=== PATIENT | female | born 1970 | race Caucasian/White ===

== ENCOUNTER → 2018-06-25 | Outpatient (CLI) | payer BC ==
[~2018-06-25] MED LIST: BYDUREON B2 MG/0.85 SUBQ; COZAAR 25 MG TA25 M1 PO; CRESTOR10 MG PO; FARXIGA10 MG PO; FLEXERIL PO; NEURONTIN 300300 M1 PO; NORCO 10-325 T1 EAC1 PO; ROBAXIN 750 MG750 M1 PO
--- NOTE | 2018-07-13 10:00 | PAINCON ---
[facility] [address] [place] [address] PAIN MANAGEMENT CONSULTATION Name: MUSHTAQ TONG Room: [facility]#: [id number] Admission: 06/25/18 Attend Phys: Juan Clifford MD Discharge: Date of : 66 Report #: [id number] THIS REPORT FOR: //name// CC: MATTY physician/PCP RUBY Clifford DATE OF SERVICE: 06/25/2018 CHIEF COMPLAINT: Hip pain. HISTORY OF PRESENT ILLNESS: The patient is a 48-year-old female who has been noticing worsening of pain and discomfort over the last months. Over the last 6 months she has notable definite worsening of pain and discomfort involving her left hip. States that it feels like it is on fire. Notes that the pain radiates from the outer portion of her hip into the area of the groin. Pain is worse with standing, walking. Denies any trauma. Has noted some improvement in pain with use of a heating pad. She notes that rest can improve with discomfort. Describes as continuous, burning and rates it as an 8/10. She has not had any trauma to the affected area. She does drive a car. It is a 5 speed. At this juncture, she notes that the pain is specifically increased secondary to drive in the 5 speed. She must shift on numerous occasions. This makes this quite problematic. The patient has been in the process of losing weight. She states that she has lost 40-50 pounds at this juncture, has been walking and working out in a pool. She has a history of chronic fatigue syndrome. She feels that this is happy, had a very opportune time. She and her children have planned on going to [place] in the spring. She would like to be evaluated. ALLERGIES: KEFLEX, DEMEROL, HUMIRA. CURRENT MEDICATIONS: Flexeril 10 mg t.i.d., Farxiga 10 mg, exenatide microspheres 2 mg subcutaneous auto inject, [place] 10/325 every 6 hours p.r.n., Cozaar 25 mg 50 mg total, Robaxin 750 mg every 4 hours p.r.n., Crestor 10 mg. 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 PAST SURGICAL HISTORY: Cholecystectomy, tonsillectomy. SOCIAL HISTORY: She is a homemaker. REVIEW OF SYSTEMS: Recent weight change, decreased appetite, fatigue, weakness, wears glasses, blurred vision, awakens to urinate, joint pain, joint stiffness, swelling, weakness of the muscle, joints pain in the muscles and cramping, [place] [address] PAIN MANAGEMENT CONSULTATION Name: MUSHTAQ TONG Room: [facility]#: [id number] Admission: 06/25/18 Attend Phys: Juan Clifford MD Discharge: Date of : 66 Report #: [id number] pain, difficulty walking, nervousness, depression, and insomnia. PAIN CLINIC ASSESSMENT/PQRS: 1. Left hip pain. 2. Rheumatoid arthritis. The patient states she has been treated for rheumatoid arthritis, but is ALLERGIC TO THE BIOLOGICAL AGENTS. Height 5 feet 4 inches, weight 302 pounds, BMI is 52. Blood pressure 158/107, heart rate 110, respiratory rate 16, room air saturation 96%, temperature 98.7. 3. Pain intensity 3-4. 4. Fall history: The patient has not fallen in the last 3 months. 5. Blood thinner. The patient is not on a blood thinning medication. 6. Hypertension. The patient is being treated for hypertension. 7. Opioid therapy greater than 6 weeks. The patient is not receiving opioid medications greater than 6 weeks. 8. Risk assessment tool. 9. Functional assessment tool. 10. Recreational drug use: The patient denies. 11. Tobacco: The patient denies. 12. Alcohol: The patient denies use of alcoholic beverages. PHYSICAL EXAMINATION: GENERAL: The patient is a well-developed, well-nourished elderly obese white female, appears her stated age. She is alert and oriented x3. Affect is appropriate. Speech is fluent. HEAD, EYES, EARS, NOSE, AND THROAT: Normocephalic, atraumatic. Extraocular muscles intact. Sclerae nonicteric. Mucous membranes are moist. NECK: Without adenopathy or JVD. Upper extremity muscle strength is judged to be 5/5 for the major muscle groups in the upper extremity. HEART: Regular rate, distant tones. LUNGS: Clear to auscultation without rales or rhonchi. ABDOMEN: The patient has abdomen protuberant. Bowel sounds positive. MUSCULOSKELETAL: Without significant scoliosis, kyphosis or lordosis. The patient has pain and discomfort involving the left hip. Internal and external rotation of the hip are problematic and worsens pain and discomfort. The patient notes pain and discomfort with standing, going from a sitting to a standing position. The patient for a few steps. Notes pain radiating into the angle of her hip joint. 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 RECOMMENDATIONS: We discussed treatment options with the patient. At this juncture, we will consider an x-ray of her hip. The patient will return to the pain clinic. We will consider the possibility of an [place] [address] PAIN MANAGEMENT CONSULTATION Name: MUSHTAQ TONG Room: [facility]#: [id number] Admission: 06/25/18 Attend Phys: Juan Clifford MD Discharge: Date of : 66 Report #: [id number] upon her return. Risks and benefits of the procedure were discussed. The patient is a diabetic. I explained to her possible elevation of blood sugars associated with the injection. At this juncture, she ____. We will then proceed with a left hip injection under fluoroscopy. We would like to thank you for letting us to participate in her care. We hope she continues to improve. <ELECTRONICALLY SIGNED> By: Juan Clifford MD 07/13/18 1000 [id number] [id number]. Rivas Clifford MD /DARYA
== END ==
LOC: M.PC 04:55
DX: M25.552 Pain in left hip (principal); E11.9 Type 2 diabetes mellitus without complications; E78.5 Hyperlipidemia, unspecified; I10 Essential (primary) hypertension; M06.9 Rheumatoid arthritis, unspecified; E66.9 Obesity, unspecified; R53.83 Other fatigue; M54.5 Low back pain; G47.00 Insomnia, unspecified; K76.0 Fatty (change of) liver, not elsewhere classified; G89.29 Other chronic pain; R10.30 Lower abdominal pain, unspecified; E16.4 Increased secretion of gastrin

== ENCOUNTER → 2018-06-30 | Outpatient (CLI) | payer BC, MEDICARE ==
--- NOTE | 2018-08-12 15:49 | PAINCON ---
[address] [address] PAIN MANAGEMENT CONSULTATION Name: MUSHTAQ TONG Room: [facility]#: [id number] Admission: 06/30/18 Attend Phys: Juan Clifford MD Discharge: Date of : 66 Report #: [id number] THIS REPORT FOR: //name// CC: RUBY Clifford Physician staff DATE OF SERVICE: 06/30/2018 FOLLOWUP COMPLAINT: Here for a left hip injection. HISTORY OF PRESENT ILLNESS: The patient is a 48-year-old female who has been referred to the pain clinic because of pain and discomfort which she has been experiencing over the last few months. Over the last 6 months, she has noticed an increased pain and discomfort involving her left hip. She feels that it is "on fire." Notes that the pain radiates down from her hip into the groin area. Pain is worse with standing and walking. Denies any history of trauma. She has noted some improvement with placement of a heating pad on it. Notes that the pain improves with rest. Rates it as an 8/10 at this juncture. She has difficulty getting in and out of the car because of the pain. She states she has lost about 40-50 pounds. This is not in relationship to the hip, but has been working on it. She notes that this was enabled by walking as well as working out in the pool. These two activities have been significantly curtailed because of her pain. ALLERGIES: KEFLEX, DEMEROL, AND HUMIRA. MEDICATIONS: Flexeril 10 mg t.i.d., Farxiga 10 mg, Exenatide microspheres 2 mg subcutaneous auto inject, [place] 10/325 one p.o. q. 6 hours p.r.n. pain, Cozaar 25 mg, a total of 50 mg, Robaxin 750 mg q. 4 hours and Crestor 10 mg. PAIN CLINIC ASSESSMENT/PQRS: 1. The patient has some arthritic changes associated with her left hip. The patient has been treated with biologics for rheumatoid arthritis. She is unable to take treatment from these medications secondary to allergies. 2. Pain intensity 12/06. 3. Height 5 feet 4 inches, weight 302 pounds, BMI is 52. 4. Vital Signs: Blood pressure 138/86, heart rate 80, respiratory rate 16, room air saturation 94%. 5. Fall history: The patient has not fallen in the last 3 months. 6. Blood thinner. The patient is not on a blood thinning medication. 7. Hypertension. The patient is being treated for hypertension. 8. Opioid therapy greater than 6 weeks. The patient has not been receiving opioid medications for greater than 6 weeks. 9. [place] [address] PAIN MANAGEMENT CONSULTATION Name: MUSHTAQ TONG Room: [facility]#: [id number] Admission: 06/30/18 Attend Phys: Juan Clifford MD Discharge: Date of : 66 Report #: [id number] 10. Functional assessment tool. 11. Recreational drug use: The patient denies. 12. Tobacco: The patient denies. 13. Alcohol: The patient denies use of alcoholic beverages. PHYSICAL EXAMINATION: GENERAL: The patient is a well-developed, well-nourished, obese female. She appears her stated age. She is alert and oriented x 3. Her affect is appropriate. Speech is fluent. HEENT: Normocephalic, atraumatic. Extraocular eye muscles intact. Sclerae nonicteric. Mucous membranes are moist. NECK: Without adenopathy or JVD. Upper extremity muscle strength is judged to be 5/5 for the major muscle groups. HEART: Regular rate, distant tone. LUNGS: Clear to auscultation without rales or rhonchi. ABDOMEN: Nontender, protuberant. Bowel sounds positive. MUSCULOSKELETAL: Without significant scoliosis, kyphosis or lordosis. The patient does have some pain and discomfort in the left hip. Internal and external rotation cause a worsening of her pain and discomfort. The patient goes from a sitting to a standing position and walks with an antalgic gait for a few steps. Notes pain radiating into the groin area. IMPRESSION: 1. Left hip pain with radiation into the groin. 2. Rheumatoid arthritis. 3. Chronic fatigue syndrome. 4. Chronic low back pain. 5. Diabetes. 6. Insomnia. 7. Maxillary sinusitis. 8. Hyperlipidemia. 9. Hypertension. 10. Fatty liver. 11. Obesity. 12. 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 RECOMMENDATIONS: We discussed the treatment option with the patient. She recalls the possible complication of the procedure, which could include but are not limited to infection, increased pain, no improvement in pain, infection, bleeding. The patient elects to proceed. PROCEDURE NOTE: The patient was assisted in getting on the examination table. She was placed in the supine position. Her left hip area was sterilely prepped with a chlorhexidine solution and allowed to dry. It was again washed with a chlorhexidine solution and allowed to dry and for the third time again it was washed with a chlorhexidine solution and allowed to dry. A [place] 6[place] [address] PAIN MANAGEMENT CONSULTATION Name: MUSHTAQ TONG Room: [facility]#: [id number] Admission: 06/30/18 Attend Phys: Juan Clifford MD Discharge: Date of : 66 Report #: [id number] was then guided into the area of the left hip area. The skin had been anesthetized with 1% lidocaine. Fluoroscopy using anterior, posterior and lateral viewing were instituted after appropriate guidance in the area of the left hip. An injection of contrast media 180 was injected. Appropriate flow was noted. A total of 40 mg triamcinolone with 5 mL of 0.5% bupivacaine was injected. The patient tolerated the procedure well. There were no complications. She remained in the pain clinic for an appropriate amount of time. The patient's pain decreased to 2 at the time of discharge. She will follow up in the future as needed. We would like to thank you for letting us participate in her care. We hope she continues to improve. <ELECTRONICALLY SIGNED> By: Juan Clifford MD 08/12/18 1549 1152 1612N. Rivas Clifford MD /nt
== END | disposition home or self-care (01) ==
LOC: M.PC 04:52
DX: M25.552 Pain in left hip (principal); G89.29 Other chronic pain; I10 Essential (primary) hypertension; E78.5 Hyperlipidemia, unspecified; E11.9 Type 2 diabetes mellitus without complications; M06.9 Rheumatoid arthritis, unspecified; R53.82 Chronic fatigue, unspecified; M54.5 Low back pain; Z88.8 Allergy status to other drugs, medicaments and biological substances; Z79.899 Other long term (current) drug therapy; Z98.890 Other specified postprocedural states

== ENCOUNTER → 2018-08-04 | Outpatient (CLI) | payer BC, MEDICARE ==
--- NOTE | 2018-08-12 15:35 | PAINCON ---
[address] [address] PAIN MANAGEMENT CONSULTATION Name: MUSHTAQ TONG [id number] Admission: 08/04/18 Attend Phys: Juan Clifford MD Discharge: Date of : 66 Report #: [id number] THIS REPORT FOR: //name// CC: Dr. Yasmeen Clifford DATE OF SERVICE: 08/04/2018 PRIMARY CARE PHYSICIAN: Dr. Yasmeen Clark. FOLLOWUP COMPLAINT: The injection helped for a number of weeks. I would like to have another one. FOLLOWUP HISTORY: The patient is a 48-year-old female who has been seen in the pain clinic because of left hip pain. The patient has been told that she has some pathology involving her left hip. She has undergone a left hip injection. She noted significant improvement in her pain. She has noticed a return of the pain. Notes that there is pain and a "pulling sensation" in her back. Feels that her back is "out of place." Denies any new trauma. She had no complication from the last injection. No signs of infections or elevated temperatures. She has tried Vicodin, but does not feel that this has been very helpful. Continues to try to control her blood sugars. States that her A1c was about 6.5. She has gone to the Emergency Room because of pain in her leg. The patient felt pretty good after the first injection. States that she played a short game of basketball with her granddaughter. Notes some worsening of pain after that. ALLERGIES: KEFLEX, DEMEROL, HUMIRA. MEDICATIONS: Flexeril 10 mg t.i.d., Farxiga 10 mg, Exenatide microspheres 2 mg subcutaneous auto injection, [place] 10/325 one p.o. q.6 hours p.r.n. pain, Cozaar 25 mg, total of 50 mg daily, Robaxin 750 mg q.4 hours, Crestor 10 mg. PAIN CLINIC ASSESSMENT AND PQRS: 1. The patient has some arthritic changes associated with her left hip. She has been treated with biologics because of rheumatoid arthritis. She is unable to use these medications secondary to the allergies to them. 2. Pain intensity 06/08 today. 3. Height 5 feet 4 inches, weight 307 pounds, BMI is 53. 4. Vital Signs: Blood pressure 154/104, second blood pressure 167/95, heart rate 111, respiratory rate 18, room air saturation 95%, temperature 97.9. 5. Fall history: The patient has not fallen in the last 3 months. 6. Blood thinner. The patient is not on a blood thinning medication. 7. Hypertension. The patient is being treated for hypertension. 8. Opioid therapy greater than 6 weeks. The patient [place] [address] PAIN MANAGEMENT CONSULTATION Name: MUSHTAQ TONG Room: [facility]#: [id number] Admission: 08/04/18 Attend Phys: Juan Clifford MD Discharge: Date of : 66 Report #: [id number] medications on a regular basis from the pain clinic. She has received them from her physician. 9. Risk assessment tool. 10. Functional assessment tool. 11. Recreational drug use: The patient denies use of recreational drugs. 12. Tobacco: The patient denies use of tobacco. 13. Alcohol: The patient denies use of alcoholic beverages. PHYSICAL EXAMINATION: GENERAL: The patient is a well-developed, well-nourished, obese, white female. She is alert and oriented x 3. Her affect is appropriate. Speech is fluent. HEENT: Normocephalic, atraumatic. Extraocular eye muscles intact. Sclerae nonicteric. Mucous membranes are moist. NECK: Without adenopathy or JVD. Upper extremity muscle strength is judged to be 5/5 in the major muscle groups. HEART: Regular rate. S1, distant tones. LUNGS: Clear to auscultation without rales or rhonchi. ABDOMEN: Protuberant, nontender. Bowel sounds positive. MUSCULOSKELETAL: Without significant scoliosis, kyphosis or lordosis. The patient does have pain and discomfort involving the left hip. Internal and external rotation causes increased pain and discomfort. The patient does have some pain when going from a sitting to a standing position. Walks with an antalgic gait. Rates her pain as a 9/10 with movement. Has pain that radiates into the left groin area. IMPRESSION: 1. Left hip pain with radiation into the groin. 2. Rheumatoid arthritis. 3. Chronic fatigue syndrome. 4. Chronic low back pain. 5. Diabetes. 6. Insomnia. 7. Maxillary sinusitis. 8. Hyperlipidemia. 9. Hypertension. 10. Fatty liver. 11. Obesity. 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 RECOMMENDATIONS: We discussed treatment options with the patient. At this juncture, she feels that her pain continues to be problematic. She did receive some good relief after the last injection. Notes some increased pain and discomfort after playing basketball with her granddaughter. She has returned today with a desire to undergo another injection. The patient also drives about 4 hours to her physician. She was wondering if we could provide her opioid medications at this time, which would significantly decrease the amount of [facility] [address] [place] [address] PAIN MANAGEMENT CONSULTATION Name: MUSHTAQ TONG Room: [facility]#: [id number] Admission: 08/04/18 Attend Phys: Juan Clifford MD Discharge: Date of : 66 Report #: [id number] travel time that she has to undergo. The patient elects to proceed. PROCEDURE NOTE: The patient was assisted in getting on the examination table. She was placed in the supine position. Her hip area was sterilely prepped with a chlorhexidine solution and allowed to dry. It was again washed with chlorhexidine solution and allowed to dry. A second washing and this was allowed to dry. A 25-gauge needle was then used to anesthetize the skin with 1% lidocaine. A 6-inch size 10 spinal needle was used to gain access to the left hip area. Aspiration was negative. A total of 3 mL of 180 contrast media was injected. Appropriate flow was noted. A total of 40 mg triamcinolone was injected. A 5 mL of 0.5% bupivacaine was then injected. The patient tolerated the procedure well. There were no complications. She remained in the pain clinic for an appropriate amount of time. She noted that her pain had decreased to 0 at the time of discharge. She will follow up in the future as needed. We would like to thank you for letting us participate in her care. We hope she continues to improve. <ELECTRONICALLY SIGNED> By: Juan Clifford MD 08/12/18 1535 [id number]. Rivas Clifford MD /[facility]
== END | disposition home or self-care (01) ==
LOC: M.PC 08:16
DX: M16.12 Unilateral primary osteoarthritis, left hip (principal); M25.552 Pain in left hip; G89.29 Other chronic pain; M54.5 Low back pain; I10 Essential (primary) hypertension; E11.9 Type 2 diabetes mellitus without complications; J32.0 Chronic maxillary sinusitis; M06.9 Rheumatoid arthritis, unspecified; R53.82 Chronic fatigue, unspecified; E78.5 Hyperlipidemia, unspecified; E66.09 Other obesity due to excess calories; Z79.899 Other long term (current) drug therapy; Z88.8 Allergy status to other drugs, medicaments and biological substances; Z98.890 Other specified postprocedural states

== ENCOUNTER → 2018-09-08 | Outpatient (CLI) | payer BC, MEDICARE ==
--- NOTE | ~2018-09-08 | PAINCON ---
[address] [address] PAIN MANAGEMENT CONSULTATION Name: MUSHTAQ TONG Room: [facility].#: [id number] Admission: 09/08/18 Attend Phys: Juan Clifford MD Discharge: Date of : 66 Report #: [id number] THIS REPORT FOR: //name// CC: RUBY Clifford DATE OF SERVICE: 09/08/2018 FOLLOWUP COMPLAINT: Pain has improved significantly after the hip injections. I would like to try another. FOLLOWUP HISTORY: The patient is a 48-year-old female who has been seen in the Pain Clinic because of left hip pain. She has been told that she has some pathology involving her left hip. She has undergone a left hip injection previously. She noted greater than 90% improvement in the pain for quite a number of months to quite a number of weeks after the last injection. She has just noted a return of pain and discomfort. I would like to return to another injection at this juncture. Denies any new trauma. Has had no worsening or changes in her pain. She has not had any symptoms that would make her think that she has had an infection in the area. She has not noted any elevated temperatures. Finds that Vicodin continues to be helpful. She continues to monitor her blood sugars. She has been seen in the Emergency Room because the pain level has risen to such a great level. Overall, things have improved. She has returned today with the desire to undergo another injection to help with the chronic pain, which has been so problematic. Notes that the pain radiates down into her groin to the back of her leg to the knee. Frequently, she has been experiencing stiffness. The patient is scheduled to meet with her doctor Dr. Javed in the future to discuss options. ALLERGIES: KEFLEX, DEMEROL, HUMIRA. MEDICATIONS: Flexeril 10 mg t.i.d., Farxiga 10 mg, 2 mg subcutaneous injection, [place] 10/325 one p.o. q.6 hours p.r.n. pain, Cozaar 25 mg total 50 mg daily, Robaxin 750 mg q.4 hours, Crestor 10 mg. PAIN CLINIC ASSESSMENT/PQRS: 1. The patient has some arthritic changes associated with the left hip. She has been treated with biologics because of rheumatoid arthritis. She has had some difficulty with these medications secondary to allergies to them. 2. Pain intensity, 02/05. 3. Fall risk. The patient has not fallen in the last 3 months. 4. Blood thinner. The patient is not on a blood thinning medication. 5. Hypertension. The patient is being treated for hypertension. 6. Opioid therapy greater than 6 weeks. 7. The patient is receiving opioid medications for help with her pain control. We have written her last couple of medications. [place] [address] PAIN MANAGEMENT CONSULTATION Name: MUSHTAQ TONG Room: [facility]#: [id number] Admission: 09/08/18 Attend Phys: Juan Clifford MD Discharge: Date of : 66 Report #: [id number] of hours, try to her physician. 8. Risk assessment tool. 9. Functional assessment tool. 10. Recreational drug use: The patient denies use of recreational drugs. 11. Tobacco: The patient denies use of tobacco. 12. Alcohol: The patient denies use of frequent use of alcoholic beverages. PHYSICAL EXAMINATION: GENERAL: The patient is a well-developed, well-nourished white female who is obese. Her affect is appropriate. Speech is fluent. HEENT: Normocephalic, atraumatic. Extraocular eye muscles intact. Sclerae nonicteric. Mucous membranes are moist. NECK: Without adenopathy or JVD. Muscle strength in the upper extremity judged to be 5/5 for the major muscle groups. HEART: Regular rate. S1, S2. Distant tones. LUNGS: Clear to auscultation without rales or rhonchi. ABDOMEN: Protuberant, nontender. Bowel sounds present. MUSCULOSKELETAL: Without significant scoliosis, kyphosis or lordosis. The patient does have pain and discomfort radiating down to her left hip. Internal and external rotation cause increased pain and discomfort in the groin area. The patient notes going from a sitting to a standing position can be problematic. The patient walks with a slight antalgic gait. IMPRESSION: 1. Left hip pain with radiation into the groin area. 2. Rheumatoid arthritis. 3. Chronic fatigue syndrome. 4. Chronic low back pain. 5. Diabetes. 6. Insomnia. 7. Maxillary sinusitis. 8. Hyperlipidemia. 9. Hypertension. 10. Fatty liver. 11. Obesity. 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 RECOMMENDATIONS: We discussed treatment options with the patient. Risks and benefits of a hip injection were again discussed. Possible complications of the procedure were reviewed. They include nerve damage, bleeding, worsening of pain, no improvement in pain, infection, and the patient elects to proceed. PROCEDURE NOTE: The patient was taken to the procedure area. She was placed in the supine position. A chlorhexidine solution was used to sterilize the left groin area. This was allowed to dry. A second cleaning of this area with another chlorhexidine solution and allowed to dry was performed. Fluoroscopy [address] [address] PAIN MANAGEMENT CONSULTATION Name: MUSHTAQ TONG Room: [facility]#: [id number] Admission: 09/08/18 Attend Phys: Wilbert. Rivas Clifford MD Discharge: Date of : 66 Report #: [id number] using anterior, posterior as well as lateral viewing were implemented. A 25-gauge needle was then advanced into the area. Skin wheal was placed. A 22-gauge Chiba needle was then advanced into the area of the left hip joint. Aspiration was negative. Contrast dye was infiltrated. Appropriate spread of the contrast dye was noted. A total of 40 mg triamcinolone was injected. A total of 5 mL of 0.5% bupivacaine was injected. The patient tolerated the procedure well. There was no weakness in her legs. Pain decreased to ____ from 5-0 at the time of discharge. She will follow up in the future. A total of 21 seconds fluoroscopy time was used. We would like to thank you for letting us participate in her care. We hope she continues to improve. By: [id number]. Rivas Clifford MD /nt
== END | disposition home or self-care (01) ==
LOC: M.PC 04:40
DX: M25.552 Pain in left hip (principal); G89.29 Other chronic pain; I10 Essential (primary) hypertension; E11.9 Type 2 diabetes mellitus without complications; M54.5 Low back pain; M06.9 Rheumatoid arthritis, unspecified; R53.82 Chronic fatigue, unspecified; G47.00 Insomnia, unspecified; E78.5 Hyperlipidemia, unspecified; E66.09 Other obesity due to excess calories; Z98.890 Other specified postprocedural states; Z79.899 Other long term (current) drug therapy; Z88.8 Allergy status to other drugs, medicaments and biological substances

== ENCOUNTER → 2018-10-13 | Outpatient (CLI) | payer BC, MEDICARE ==
[~2018-10-13] MED LIST changes: +LANTUS100 UNIT/M SUBQ
== END | disposition home or self-care (01) ==
LOC: M.PC 09:20
DX: M25.552 Pain in left hip (principal); G89.29 Other chronic pain; I10 Essential (primary) hypertension; E11.9 Type 2 diabetes mellitus without complications; E78.5 Hyperlipidemia, unspecified; M06.9 Rheumatoid arthritis, unspecified; M54.5 Low back pain; Z98.890 Other specified postprocedural states; Z79.899 Other long term (current) drug therapy; Z88.8 Allergy status to other drugs, medicaments and biological substances

== ENCOUNTER → 2018-12-03 | Outpatient (CLI) | payer BC, MEDICARE ==
--- NOTE | ~2018-12-03 | PAINCON ---
[address] [address] PAIN MANAGEMENT CONSULTATION Name: MUSHTAQ TONG [id number] Admission: 12/03/18 Attend Phys: Juan Clifford MD Discharge: Date of : 66 Report #: [id number] THIS REPORT FOR: //name// CC: RUBY Clifford DATE OF SERVICE: 12/03/2018 CHIEF COMPLAINT: History of left hip pain has improved. FOLLOWUP HISTORY: The patient is a 48-year-old female who has been seen in the Pain Clinic because of chronic left hip pain. The patient states that she has improved. She is not having pain today. She has had pain over the last 10 months. She did see her orthopedic doctor. She states that she was told that she has bursitis. She was given an injection on 10/24/2018. Has found that the injection has been helpful. The patient does not need surgery. She can probably get by with injections on a p.r.n. basis. She notes that her blood sugars are going reasonably well. Finds that the hydrocodone, gabapentin and Flexeril are helpful. She would like to receive her medications through the Pain Clinic. She states that her physician who has been providing the medication has moved. She has about two mile, a 2-hour drive from her home and a 2-hour drive back. She states that she is about one-half hour away from the Pain Clinic and would like to continue to get her medications here because of convenience. Notes the pain is worse with activities, walking, standing and bending. Feels that her medications, heat and rest have been helpful. ALLERGIES: KEFLEX, DEMEROL, HUMIRA. CURRENT MEDICATIONS: Flexeril 10 mg t.i.d., Farxiga 10 mg, 2 mg subcutaneous injections, [place] 10/325 one p.o. 4-6 hours p.r.n., Cozaar 25 mg, a total of 50 mg daily, Robaxin 750 mg q. 4 hours and Crestor 10 mg. PAIN CLINIC ASSESSMENT/PQRS: 1. The patient has some arthritic changes associated with left hip. She does have rheumatoid arthritis. She has been treated with biological agents. She has had a difficult time tolerating these medications. 2. Pain intensity is 0/10. 3. Fall history: The patient has not fallen in the last 3 months. 4. Blood thinner. The patient is not on a blood thinning medication. 5. Hypertension. The patient is being treated for hypertension. 6. Opioids greater than 6 weeks. The patient would like to receive her medications from one source, the Pain Clinic. 7. Risk assessment tool, low for opioid use. 8. Functional assessment tool. 9. Recreational drug use. The patient denies use of recreational drugs. 10. Tobacco: The [place] [address] PAIN MANAGEMENT CONSULTATION Name: MUSHTAQ TONG Room: [facility]#: [id number] Admission: 12/03/18 Attend Phys: Juan Clifford MD Discharge: Date of : 66 Report #: [id number] 11. Alcohol: The patient denies use of alcoholic beverages. PHYSICAL EXAMINATION: GENERAL: The patient is a well-developed, obese white female. Appears her stated age. She is alert and oriented x 3. Her affect is appropriate. Speech is fluent. Her significant other is with her. HEENT: Normocephalic, atraumatic. Extraocular eye muscles intact. Sclerae nonicteric. Mucous membranes are moist. NECK: Without adenopathy or JVD. HEART: Regular rate. S1 and S2, distant tones. LUNGS: Clear to auscultation without rhonchi or rales. ABDOMEN: Protuberant. Bowel sounds present. MUSCULOSKELETAL: Judged to be 5/5 for the major muscle groups in the upper extremity. The patient is without significant scoliosis, kyphosis or lordosis. Has minimal pain in the left hip. States that she is having 0 pain. IMPRESSION: 1. Left hip pain, which is improved with an injection for bursitis on the left on 10/24/2018. 2. Rheumatoid arthritis. 3. Chronic fatigue syndrome. 4. Chronic low back pain. 5. Diabetes. 6. Insomnia. 7. Maxillary sinus history. 8. Hyperlipidemia. 9. Hypertension. 10. Fatty liver them. 11. Obesity. 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 RECOMMENDATIONS: We will continue with the patient's opioid medications. The patient's main physician who has been providing medications, has moved. States a 2-hour drive from her house to his office. She would like to continue to have her medication from one source here, the Pain Clinic, which is about one-half hour from her home. I think this is reasonable. We are glad that she is improved. She will call us if she has any concerns. A script for her medications of gabapentin 300 mg one p.o. t.i.d., Flexeril 10 mg 1 p.o. b.i.d. and hydrocodone 10/325, 120 tablets have been dispensed. The patient will call us if she has any problems. [place] [address] [place] [address] PAIN MANAGEMENT CONSULTATION Name: MUSHTAQ TONG Room: [facility]#: [id number] Admission: 12/03/18 Attend Phys: Juan Clifford MD Discharge: Date of : 66 Report #: [id number] We would like to thank you for letting us participate in her care. We hope she continues to improve. By: [id number]. Rivas Clifford MD /nt
== END ==
LOC: M.PC 04:52
DX: M25.552 Pain in left hip (principal); M06.9 Rheumatoid arthritis, unspecified; R53.83 Other fatigue; M54.5 Low back pain; G89.29 Other chronic pain; E11.9 Type 2 diabetes mellitus without complications; I10 Essential (primary) hypertension; E78.5 Hyperlipidemia, unspecified; K76.0 Fatty (change of) liver, not elsewhere classified; E16.4 Increased secretion of gastrin; E66.9 Obesity, unspecified; G47.00 Insomnia, unspecified; Z88.8 Allergy status to other drugs, medicaments and biological substances; Z79.899 Other long term (current) drug therapy

== ENCOUNTER → 2019-01-14 | Outpatient (CLI) | payer BC, MEDICARE ==
[~2019-01-14] MED LIST changes: +MEDROLDOSEPACK PO
--- NOTE | ~2019-01-14 | PAINCON ---
[address] [address] PAIN MANAGEMENT CONSULTATION Name: MUSHTAQ TONG [id number] Admission: 01/14/19 Attend Phys: Juan Clifford MD Discharge: Date of : 66 Report #: [id number] THIS REPORT FOR: //name// CC: Willard SILVA/YAMIL Clifford DATE OF SERVICE: 01/14/2019 CHIEF COMPLAINT: Left hip and knee pain. HISTORY: The patient is a 48-year-old female, who has been followed in the pain clinic because of chronic hip pain. She has undergone left hip injections in the past. Overall, that pain has improved. She was found to have bursitis in the left hip. It was injected in September. She felt that that was helpful. She has noted a return of pain in the left hip. She and her family are contemplating a trip to [place] on 02/18/2019. At this point, she would like to undergo a right hip replacement for bursitis. She rates her pain as an 8/10 today. She continues to use gabapentin, Robaxin, hydrocodone, and cyclobenzaprine to help control her pain. She notes that the pain is worse when she is walking, standing, climbing stairs, bending, and lifting. She notes there has been some help with use of medications, heat and rest. She would like to proceed with an injection today. CURRENT MEDICATIONS: Flexeril 10 mg t.i.d., Farxiga 10 mg, 2 mg subcutaneous injections; [place] 10/325 one p.o. q.4-6 hours p.r.n., Cozaar 25 mg, total of 50 mg daily; Robaxin 750 mg q.4 hours p.r.n., and Crestor 10 mg. ALLERGIES: KEFLEX, DEMEROL, AND HUMIRA. PAIN CLINIC ASSESSMENT/PQRS: 1. The patient has some arthritic changes associated with the left hip. She does have rheumatoid arthritis. The patient has been treated in the past with a biological agent. She has difficulty tolerating these medications. 2. Pain intensity is 8/10. 3. Fall history. The patient has not fallen in the last 3 months. 4. Blood thinner. The patient is not on a blood thinning medication. 5. Hypertension. The patient is being treated for hypertension. 6. Opioids greater than last 6 weeks. The patient has received opioid medications of hydrocodone to help control her pain. 7. Risk assessment tool, low for opioid use. 8. Functional assessment tool. 9. Recreational drug use. The patient denies use of recreational drugs. 10. Tobacco. The patient denies use of tobacco. 11. Alcohol. The patient [place] [address] PAIN MANAGEMENT CONSULTATION Name: MUSHTAQ TONG Room: [facility]#: [id number] Admission: 01/14/19 Attend Phys: Juan Clifford MD Discharge: Date of : 66 Report #: [id number] PHYSICAL EXAMINATION: GENERAL: The patient is a well-developed, obese white female. She appears her stated age. She is alert and oriented x 3. Her affect is appropriate. Speech is fluent. Height is 5 feet 4 inches, weight is 316 pounds, and BMI is 55. HEENT: Normocephalic, atraumatic. Extraocular eye muscles intact. Sclerae nonicteric. Mucous membranes are moist. NECK: Without adenopathy or JVD. HEART: Regular rate. S1, S2. LUNGS: Clear to auscultation without rhonchi or rales. ABDOMEN: Protuberant. Bowel sounds present. MUSCULOSKELETAL: Indicate upper muscle strength is 5/5. Lower muscle strength is judged to be 5/5 on the right side and 5-/5 on the left. She has pain and discomfort in the left hip. Soreness and discomfort is noted on the left greater trochanteric area. IMPRESSION: 1. Left hip pain, improved with injection in September. 2. Rheumatoid arthritis. 3. Chronic fatigue syndrome. 4. Chronic low back pain. 5. Diabetes. 6. Insomnia. 7. Maxillary sinus history. 8. Hyperlipidemia. 9. Hypertension. 10. Fatty liver. 11. Morbid obesity. 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 RECOMMENDATIONS: We have discussed treatment options with the patient. Risks and benefits of the injection to the left greater trochanteric area because of trochanteric bursitis were discussed. Possible complications of the procedure, which could include worsening of pain, no improvement in pain, bleeding, infection were discussed and the patient elects to proceed. PROCEDURE NOTE: The patient was taken to the procedure area. She was then placed in the right lateral decubitus position with her left hip up. This area was sterilely prepped with a chlorhexidine solution and allowed to dry. A second cleansing of this area was ____ allowed to dry. Fluoroscopy was used to identify the greater trochanteric area. This area was then injected with 0.5% bupivacaine. A 20-gauge spinal needle was then advanced into the greater trochanteric area. Aspiration was negative. A total of 40 mg triamcinolone and 5 mL of 0.5% bupivacaine was injected. The patient tolerated the procedure well. There were no complications. She remained in the pain clinic for an appropriate amount of time. She will follow up in [place] [address] PAIN MANAGEMENT CONSULTATION Name: MUSHTAQ TONG Room: [facility]#: [id number] Admission: 01/14/19 Attend Phys: Juan Clifford MD Discharge: Date of : 66 Report #: [id number] script for gabapentin 300 mg 1 p.o. t.i.d., Flexeril 10 mg 1 p.o. t.i.d., and a Medrol Dosepak have been given. The patient is going to [place]. Should her pain become more problematic, she will have Medrol Dosepak to take in that event. Hopefully, she and her family will have nice unremarkable vacation in regards to her pain. We would like to thank you for letting us to participate in her care. We hope she continues to improve. By: [id number]. Rivas Clifford MD /DARYA
== END | disposition home or self-care (01) ==
LOC: M.PC 05:21
DX: M25.552 Pain in left hip (principal); M06.9 Rheumatoid arthritis, unspecified; R53.82 Chronic fatigue, unspecified; G89.29 Other chronic pain; M54.5 Low back pain; E11.9 Type 2 diabetes mellitus without complications; G47.00 Insomnia, unspecified; E78.5 Hyperlipidemia, unspecified; I10 Essential (primary) hypertension; E66.01 Morbid (severe) obesity due to excess calories; E16.4 Increased secretion of gastrin

== ENCOUNTER → 2019-05-04 | Outpatient (CLI) | payer BC, MEDICARE | END | disposition home or self-care (01) | LOC: M.PC 04-08 10:00 | DX: M70.62 Trochanteric bursitis, left hip (principal); M06.9 Rheumatoid arthritis, unspecified; R53.82 Chronic fatigue, unspecified; G89.29 Other chronic pain; E11.9 Type 2 diabetes mellitus without complications; G47.00 Insomnia, unspecified; E78.5 Hyperlipidemia, unspecified; I10 Essential (primary) hypertension; K76.0 Fatty (change of) liver, not elsewhere classified; E66.01 Morbid (severe) obesity due to excess calories; Z88.8 Allergy status to other drugs, medicaments and biological substances; Z79.899 Other long term (current) drug therapy; Z79.4 Long term (current) use of insulin ==

== ENCOUNTER → 2019-08-05 | Outpatient (CLI) | payer BC, MEDICARE ==
--- NOTE | 2019-08-10 10:01 | PAINCON ---
[address] [address] PAIN MANAGEMENT CONSULTATION Name: MUSHTAQ TONG Room: [facility]#: [id number] Admission: 08/05/19 Attend Phys: Juan Clifford MD Discharge: Date of : 66 Report #: [id number] THIS REPORT FOR: //name// CC: ISABEL Clifford DATE OF SERVICE: 08/05/2019 CHIEF COMPLAINT: Return of left hip pain. HISTORY OF PRESENT ILLNESS: The patient is a 49-year-old female, who has been seen in the pain clinic in the past because of left hip pain. She has undergone injections because of history of greater trochanteric bursitis on the left side. With these injections, she has noticed an improvement in her pain and discomfort. She returns today because of the recurrence of this pain and would like to proceed with another injection. She finds that her current medical regimen of gabapentin, Flexeril and hydrocodone are helpful. Overall, her pain improves about 70% with her medications. She received about 100% pain relief after the injection in 04/2019. Rates her pain today as 7-8 on most days. Notes that the pain improves with use of hydrocodone. The change in the [id number], walking, standing, climbing stairs, sitting and bending have caused more worsening of her discomfort. ALLERGIES: KEFLEX, DEMEROL AND HUMIRA. CURRENT MEDICATIONS: Flexeril 10 mg 1 p.o. t.i.d.; Farxiga 2 mg subcutaneous injections; [place] 10/325 one p.o. q. 4-6 hours; Cozaar 25 mg, a total of 50 mg daily; Robaxin 750 mg p.r.n.; Crestor 10 mg. PAIN CLINIC ASSESSMENT/PQRS: 1. The patient has some arthritic changes associated with the left hip. She does have some rheumatologic problems. She has been treated in the past with biologic agents. She has found it difficult to tolerate these agents. 2. Pain intensity -04/07. 3. Fall history: The patient has not fallen in the last 3 months. 4. Blood thinner. The patient is not on a blood-thinning medication. 5. Hypertension. The patient is being treated for hypertension. 6. Opioids greater than 6 weeks. The patient received medication from [facility]. 7. Risk assessment tool: Low for opioid use. 8. Functional assessment tool. 9. Recreational drug use: The patient denies. 10. Tobacco: The patient denies use of tobacco. 11. Alcohol. The patient [place] [address] PAIN MANAGEMENT CONSULTATION Name: UMSHTAQ TONG Neo Room: [facility]#: [id number] Admission: 08/05/19 Attend Phys: Juan Clifford MD Discharge: Date of : 66 Report #: [id number] PHYSICAL EXAMINATION: GENERAL: The patient is a well-developed, well-nourished, morbidly obese, white female. She is alert and oriented x 3. Her affect is appropriate. Speech is fluent. HEENT: Normocephalic, atraumatic. Extraocular eye muscles are intact. Sclerae are nonicteric. Mucous membranes are moist. NECK: Without adenopathy or JVD. HEART: Regular rate. S1, S2. Distant tones. LUNGS: Clear to auscultation without rhonchi or rales. ABDOMEN: Protuberant. Bowel sounds present. MUSCULOSKELETAL: Without significant scoliosis, kyphosis or lordosis. EXTREMITIES: Upper extremity muscle strength judged to be 5/5 for the major muscle groups in the upper extremity. The patient has some pain and discomfort in the lower portion of her back and down into her left hip. The patient has pain and discomfort in the left trochanteric bursa. IMPRESSION: 1. Left trochanteric bursitis, improved, after an epidural steroid injection in the past. 2. Rheumatoid arthritis. 3. Chronic fatigue syndrome. 4. Chronic low back pain. 5. Diabetes. 6. Insomnia. 7. Maxillary sinus history. 8. Hyperlipidemia. 9. Hypertension. 10. Fatty liver. 11. Morbid obesity. 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 RECOMMENDATIONS: We discussed treatment options with the patient. Risks and benefits of injections in the hip were discussed. Possibility of worsening of pain, infection, no improvement in pain, bleeding were discussed with the patient and she elects to proceed. PROCEDURE NOTE: The patient was taken to the procedure area. She was then assisted in getting on the examination table. The patient was placed in the right lateral decubitus position. Her left hip was then sterilely prepped on 2 occasions with a chlorhexidine solution and allowed to dry. Fluoroscopy was used to identify the trochanteric area. A 25-gauge needle was then used to anesthetize the area. A total of 11 seconds fluoroscopy time was used. The patient's pain decreased to 0 at [place] [address] PAIN MANAGEMENT CONSULTATION Name: MUSHTAQ TONG Room: [facility]#: [id number] Admission: 08/05/19 Attend Phys: Juan Clifford MD Discharge: Date of : 66 Report #: [id number] We would like to thank you for letting us participate in her care. We hope she continues to <ELECTRONICALLY SIGNED> By: Juan Clifford MD 08/10/19 [id number]. Rivas Clifford MD /nt
== END | disposition home or self-care (01) ==
LOC: M.PC 05:35
DX: M25.552 Pain in left hip (principal); M70.62 Trochanteric bursitis, left hip; I10 Essential (primary) hypertension; E78.5 Hyperlipidemia, unspecified; E66.01 Morbid (severe) obesity due to excess calories; E11.9 Type 2 diabetes mellitus without complications; G89.29 Other chronic pain; M54.5 Low back pain; R53.82 Chronic fatigue, unspecified; M06.9 Rheumatoid arthritis, unspecified; G47.00 Insomnia, unspecified; K76.0 Fatty (change of) liver, not elsewhere classified; Z98.890 Other specified postprocedural states; Z88.8 Allergy status to other drugs, medicaments and biological substances; Z79.899 Other long term (current) drug therapy

== ENCOUNTER → 2019-10-21 | Outpatient (CLI) | payer BC, MEDICARE ==
--- NOTE | ~2019-10-21 | PAINCON ---
[address] [address] PAIN MANAGEMENT CONSULTATION Name: MUSHTAQ TONG Room: [facility].#: [id number] Admission: 10/21/19 Attend Phys: Juan Clifford MD Discharge: Date of : 66 Report #: [id number] THIS REPORT FOR: //name// CC: RUBY Clifford DATE OF SERVICE: 10/21/2019 CHIEF COMPLAINT: Return of the left hip pain. HISTORY: The patient is a 49-year-old female, who has been seen in the Pain Clinic because of left hip pain. She has a history of bursitis. She has undergone trochanteric injections in the past. She has found those beneficial. She returned today because of the increased pain that she is experiencing on the left side. She desires an injection into the left bursa area. This has been beneficial. She has had no complication from their use. ALLERGIES: KEFLEX, DEMEROL, HUMIRA -- the patient is unable to take biologics for her rheumatoid arthritis. CURRENT MEDICATIONS: Flexeril 10 mg 1 p.o. t.i.d., Farxiga 2 mg subcutaneous injections, [place] 10/325 one p.o. every 4-6 hours p.r.n., Cozaar 25 mg total of 50 mg daily, Robaxin 750 mg, and Crestor 10 mg. PAIN CLINIC ASSESSMENT AND PQRS: 1. The patient has some arthritic changes involving her left hip. She does have rheumatoid arthritic changes and problems. She is unable to tolerate biologic agents. 2. Pain clinic assessment: 05/08. 3. Fall history: The patient has not fallen since we saw her last. 2. Blood thinner. The patient is not on a blood thinning medication. 3. Hypertension. The patient is being treated for hypertension. 4. Opioids greater than 6 weeks. The patient receives medications from one source for her opioids. 5. Risk assessment tool, low for opioid use. 6. Functional assessment tool has been reviewed. 7. Recreational drug use: The patient denies. 8. Tobacco: The patient denies. PHYSICAL EXAMINATION: GENERAL: The patient is a well-developed, well-nourished, morbidly obese white female. She appears her stated age. She is alert and oriented x 3. Her affect is appropriate. Speech is fluent. HEENT: Normocephalic, atraumatic. Extraocular eye muscles intact. Sclerae nonicteric[place] [address] PAIN MANAGEMENT CONSULTATION Name: MUSHTAQ TONG Room: [facility]#: [id number] Admission: 10/21/19 Attend Phys: Juan Clifford MD Discharge: Date of : 66 Report #: [id number] NECK: Without adenopathy or JVD. HEART: Regular rate. S1, S2, tones distant. LUNGS: Clear to auscultation without rhonchi or rales. MUSCULOSKELETAL: Without significant scoliosis, kyphosis or lordosis. Upper extremity muscle strength judged to be 5/5 for the major muscle groups in the upper extremity. The patient has pain and discomfort in the left hip. Notes movement, extension and inward and outward rotation of the hip, all cause some increased pain and discomfort. There is tenderness over the left greater trochanteric bursa. IMPRESSION: 1. Left greater trochanteric bursitis, improved with injections into the bursa in the past. 2. Rheumatoid arthritis -- the patient is unable to take biologics. 3. Chronic fatigue syndrome. 4. Chronic low back pain. 5. Diabetes. 6. Insomnia. 7. Maxillary sinus history. 8. Hyperlipidemia. 9. Hypertension. 10. Fatty liver. 11. Morbid obesity. 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 RECOMMENDATIONS: We discussed treatment options with the patient. Risks and benefits of an injection into the greater trochanteric bursa were discussed. Possible complications of the procedure were reviewed. They include but are not limited to infection, worsening pain, no improvement in pain and bleeding or nerve damage. The patient elects to proceed. PROCEDURE NOTE: The patient was taken to the procedure area. She was then placed in the right lateral decubitus position. Her left trochanteric area was sterilely prepped with a Betadine solution. This was allowed with a chlorhexidine solution. This was then allowed to dry. A second cleansing with a chlorhexidine solution was performed and allowed to dry. A skin wheal with a 25-gauge needle was then used to anesthetize the area. A 22-gauge spinal needle was then advanced into the area of the greater trochanteric area under fluoroscopy. The patient tolerated the procedure well. There were no complications. She stated that this was the area where pain was problematic and after injections, the patient's pain improved. Total of about 7 seconds fluoroscopy time was used. The patient will call us if she has any concerns. We would like to thank you for letting us to participate in her care. A script for Flexeril 10 mg 1 p.o. t.i.d., gabapentin 300 mg 1 p.o. t.i.d. and [place] 10 mg one p.o. every 4-6 hours have been provided. The patient finds that that has [address] [address] PAIN MANAGEMENT CONSULTATION Name: MUSHTAQ TONG Room: [facility] Paul#: [id number] Admission: 10/21/19 Attend Phys: Wilbert. Rivas Clifford MD Discharge: Date of : 66 Report #: [id number] provided about 70% improvement in her pain. She has experienced 100% relief in her pain post-injections in the past. We would like to thank you for letting us to participate in her care. We hope she continues to improve. By: [id number]. Rivas Clifford MD /nt
== END | disposition home or self-care (01) ==
LOC: M.PC 09:50
DX: M25.552 Pain in left hip (principal); M70.62 Trochanteric bursitis, left hip; I10 Essential (primary) hypertension; E11.9 Type 2 diabetes mellitus without complications; E78.5 Hyperlipidemia, unspecified; M54.5 Low back pain; M06.9 Rheumatoid arthritis, unspecified; G47.00 Insomnia, unspecified; G89.29 Other chronic pain; R53.82 Chronic fatigue, unspecified; E66.01 Morbid (severe) obesity due to excess calories; Z98.890 Other specified postprocedural states; Z79.899 Other long term (current) drug therapy; Z88.8 Allergy status to other drugs, medicaments and biological substances

== ENCOUNTER → 2020-02-01 | Outpatient (CLI) | payer MEDICARE, MEDICAID ==
--- NOTE | 2020-02-09 17:08 | PAINCON ---
[address] [address] PAIN MANAGEMENT CONSULTATION Name: MUSHTAQ TONG Room: [facility]#: [id number] Admission: 02/01/20 Attend Phys: Juan Clifford MD Discharge: Date of : 66 Report #: [id number] THIS REPORT FOR: //name// cc: RUBY MCGHEE MSN BC [employer] OFF BEARER RUBY MCGHEE MSN [employer] OFF BEARER ~ THIS REPORT FOR: //name// CC: RUBY Clifford DATE OF SERVICE: 02/01/2020 CHIEF COMPLAINT: "Had return of the pain in the left hip that has been helpful with past injections, I would like another." HISTORY: The patient is a 49-year-old female who has been followed in the pain clinic because of chronic hip pain. She has a history of chronic bursitis. It waxes and wanes. Injections of the left bursa in the past have been helpful. She returns today with the hopes of undergoing another injection. As her activity level has increased since 09/2019, she has noticed an increased amount of pain and discomfort. She is having some problem with her . He has denied her access to her granddaughter that is becoming more post-marital discord. She rates her pain as a 9/10 and would like to proceed with an injection. ALLERGIES: KEFLEX, DEMEROL, HUMIRA. The patient is unable to take biologics for rheumatoid arthritis. CURRENT MEDICATIONS: Flexeril 10 mg 1 p.o. t.i.d., Farxiga 2 mg subcutaneous injections, [place] 10/325 one p.o. q 4-6 hours, Cozaar 25 mg 2 tablets daily, Robaxin 750 mg, and Crestor 10 mg. PAIN CLINIC ASSESSMENT AND PQRS: 1. The patient has some arthritic changes in her left hip. She does have rheumatoid arthritis and some changes. She is not able to take biologic agents. 2. Pain clinic assessment, 06/08. 3. Fall history: The patient has not fallen in the last 3 months. PHYSICAL EXAMINATION: 1. Vital Signs: Blood pressure 154/96, heart rate 85, respiratory rate 16, room air saturation 93%. 2. Height 5 feet 4 inches, weight 318 pounds, BMI is 55. 3. Blood thinner. The patient is not on a blood thinning medication. 4. Fall history: The patient has not fallen since we saw her last. 5. Hypertension. The patient is being treated for hypertension. 6. Opioids greater than 6 weeks. The [place] [address] PAIN MANAGEMENT CONSULTATION Name: MUSHTAQ TONG Room: [facility]#: [id number] Admission: 02/01/20 Attend Phys: Juan Clifford MD Discharge: Date of : 66 Report #: [id number] source, pain clinic. 7. Risk assessment tool, low for opioid use. 8. Functional assessment tool has been reviewed. 9. Recreational drug use. The patient denies. 10. Tobacco: The patient denies. PHYSICAL EXAMINATION: GENERAL: The patient is a well-developed, well-nourished white female. Appears her stated age. She is morbidly obese. She is alert and oriented x 3. Her speech is fluent. HEENT: Normocephalic, atraumatic. Extraocular eye muscles intact. Sclerae nonicteric. Mucous membranes are moist. NECK: Without adenopathy or JVD. HEART: Regular rate, distant heart tones. LUNGS: Clear to auscultation. MUSCULOSKELETAL: Without significant scoliosis, kyphosis or lordosis. The patient has pain and discomfort in the left hip. Palpation in the area of the greater trochanteric bursa caused increase pain and discomfort. This does reproduce her discomfort. It is over the left greater trochanteric bursa. IMPRESSION: 1. Left greater trochanter bursitis, improved with injections. 2. Rheumatoid arthritis. Unable to take biologics. 3. Chronic fatigue syndrome. 4. Chronic low back pain. 5. Diabetes. 6. Insomnia. 7. Maxillary sinus history. 8. Hyperlipidemia. 9. Hypertension. 10. Fatty liver. 11. Morbid obesity. 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 RECOMMENDATIONS: We discussed treatment options with the patient. Risks and benefits of an injection in the greater trochanteric area were again discussed. Possible complications of the procedure, which could include but are not limited to infection, worsening of pain, nerve damage, bleeding and infection in the hip were discussed. The patient elects to proceed. PROCEDURE NOTE: The patient was taken to the procedure area. She was then assisted in getting on the examination table. She was placed in the right lateral decubitus position. This places her left hip in the upward position. Her area was sterilely prepped with chlorhexidine solution on 2 occasions. Each time, it was allowed to dry. A 25-gauge needle was then used to provide a skin wheal. A 22-gauge spinal needle was then [place] [address] PAIN MANAGEMENT CONSULTATION Name: MUSHTAQ TONG Room: [facility]#: [id number] Admission: 02/01/20 Attend Phys: Juan Clifford MD Discharge: Date of : 66 Report #: [id number] trochanteric bursa. The patient states that this did reproduce the pain and discomfort. A total of 7-second fluoroscopy time was used. A total of 40 mg triamcinolone was injected into the area, 5 mL of 0.5% bupivacaine was injected. The patient's pain decreased to 0 at the time of discharge. She will follow up in the future. A script for her medications of gabapentin 300 mg 1 p.o. t.i.d., Vicodin 10 mg 1 p.o. q.i.d., and Flexeril 10 mg t.i.d. have been sent to her pharmacy. We would like to thank you for letting us participate in her care. We hope she continues to improve. <ELECTRONICALLY SIGNED> By: Juan Clifford MD 02/09/20 1708 [id number]. Rivas Clifford MD /nt
== END | disposition home or self-care (01) ==
LOC: M.PC 08:00
DX: M70.62 Trochanteric bursitis, left hip (principal); M25.552 Pain in left hip; G89.29 Other chronic pain; M60.9 Myositis, unspecified; R53.82 Chronic fatigue, unspecified; M54.5 Low back pain; I10 Essential (primary) hypertension; E11.9 Type 2 diabetes mellitus without complications; E78.5 Hyperlipidemia, unspecified; G47.00 Insomnia, unspecified; E66.01 Morbid (severe) obesity due to excess calories; Z98.890 Other specified postprocedural states; Z79.899 Other long term (current) drug therapy; Z68.43 Body mass index [BMI] 50.0-59.9, adult

== ENCOUNTER → 2020-06-15 | Outpatient (CLI) | payer MEDICAID ==
[~2020-06-15] MED LIST changes: +LYRICA100 MG PO
--- NOTE | 2020-06-16 12:58 | PAINCON ---
[address] [address] PAIN MANAGEMENT CONSULTATION Name: MUSHTAQ TONG Room: [facility].#: [id number] Admission: 06/15/20 Attend Phys: Juan Clifford MD Discharge: Date of : 66 Report #: [id number] THIS REPORT FOR: //name// cc: RUBY MCGHEE MSN BC HUMAN RESOURCES DIRECTOR RUBY MCGHEE MSN BC HUMAN RESOURCES DIRECTOR ~ THIS REPORT FOR: //name// CC: RUBY Clifford DATE OF SERVICE: 06/15/2020 CHIEF COMPLAINT: "Pain in my left hip has returned. I would like another injection." HISTORY: The patient is a 50-year-old female who has been followed in the pain clinic. She does have a history of chronic bursitis. This affects her left hip. She has undergone injections to the affected area. She does note improvement afterwards for a number of months. She has noticed that the pain has become more problematic. She states that she feels she may have waited a little too long to undergo the injection. She has been suffering quite a bit of pain because of it. She rates her pain as a 10/10 at this point. She feels that the hydrocodone medication is efficacious as well. Flexeril continues to be helpful with muscle spasms. She has used gabapentin in the past. This has caused significant GI upset at this juncture. She would like to try Lyrica. She has used that in the past. It was much more tolerable. The dynamics continue to be in place in regards to her and their granddaughter. He has remarried. ALLERGIES: KEFLEX, DEMEROL, HUMIRA. THE PATIENT IS UNABLE TO TAKE BIOLOGICS SECONDARY TO RHEUMATOID ARTHRITIS. GABAPENTIN HAS CAUSED GASTRIC INTESTINAL COMPLICATIONS. CURRENT MEDICATIONS: Flexeril 10 mg 1 p.o. t.i.d., Farxiga 2 mg subcutaneous injections, [place] 10/325 1 p.o. q.4-6 hours p.r.n., Cozaar 25 mg 2 tablets daily, Robaxin 750 mg, and Crestor 10 mg. PAIN CLINIC ASSESSMENT AND PQRS: 1. The patient has some arthritic changes in her hip. She does have some rheumatologic problems. She is unable to take biologic agents. 2. Pain clinic assessment, 07/08. 3. Fall history. The patient has not fallen in the last 3 months. 4. Blood thinner. The patient is not on a blood thinning medication. 5. Hypertension. The patient is being treated for hypertension. 6. Opioids greater than 6 weeks. The patient receives medication from one source, [place] [address] PAIN MANAGEMENT CONSULTATION Name: DANIELLE TONGMELODIE Larson [id number] Admission: 06/15/20 Attend Phys: Juan Clifford MD Discharge: Date of : 66 Report #: [id number] 7. Risk assessment tool, low for opioid use. 8. Functional assessment tool, reviewed. 9. Recreational drug use, the patient denies. 10. Tobacco. The patient denies. PHYSICAL EXAMINATION: GENERAL: The patient is a well-developed, well-nourished, somewhat obese, white female. Appears her stated age. She is alert and oriented x 3. Her affect is appropriate. Speech is fluent. HEENT: Normocephalic, atraumatic. Extraocular eye muscles intact. Sclerae nonicteric. Mucous membranes are moist. The patient has a facial covering in place. NECK: Without adenopathy. HEART: Regular rate, distant tone. LUNGS: Clear. MUSCULOSKELETAL: Upper extremity muscle strength judged to be 5/5 for the major muscle groups in the upper extremity. The patient without significant scoliosis, kyphosis or lordosis. The patient has pain and discomfort, which is quite problematic in the area of the left greater trochanteric bursa. Palpation in this area causes the patient to grimace and vocalize discomfort. IMPRESSION: 1. Left greater trochanteric bursitis, improved from the injections. 2. Rheumatoid arthritis. Unable to take biologics. 3. Chronic fatigue syndrome. 4. Chronic low back pain. 5. Diabetes. 6. Insomnia. 7. Maxillary sinus history. 8. Hyperlipidemia. 9. Hypertension. 10. Fatty liver. 11. Morbid obesity. 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 RECOMMENDATIONS: We discussed treatment options with the patient. Risks and benefits of an injection, which could include but are not limited to infection, worsening pain, no improvement in pain, nerve damage, bleeding, and the patient elects to proceed. PROCEDURE NOTE: The patient was placed in the right lateral decubitus position. The left area of the greater trochanteric bursa was sterilely prepped with chlorhexidine solution and allowed to dry. A 25-gauge needle was then advanced into the area of the discomfort. After appropriate placement in the area of the bursa, the patient states that this did reproduce her discomfort. Aspiration was negative. A total of 40 mg Depo-Medrol was injected. [place] [address] PAIN MANAGEMENT CONSULTATION Name: MUSHTAQ TONG Room: [facility]#: [id number] Admission: 06/15/20 Attend Phys: Juan Clifford MD Discharge: Date of : 66 Report #: [id number] 8 mL of 0.5% bupivacaine. The patient noticed significant relief in her pain and discomfort at the time of discharge. She states she is able to walk much better. Pain was 0 at the time of discharge. She will follow up in the future as needed. We would like to thank you for letting us participate in her care. She will continue to monitor blood glucose levels closely given that steroids can cause an elevation in the levels. <ELECTRONICALLY SIGNED> By: Juan Clifford MD 06/16/20 1258 [id number]. Rivas Clifford MD /PMT
== END | disposition home or self-care (01) ==
LOC: M.PC 10:00
PROVIDERS: ATTEND Anesthesiology Pain Medicine
DX: M25.552 Pain in left hip (principal); M70.62 Trochanteric bursitis, left hip; M06.9 Rheumatoid arthritis, unspecified; R53.83 Other fatigue; E11.9 Type 2 diabetes mellitus without complications; E78.5 Hyperlipidemia, unspecified; I10 Essential (primary) hypertension; E66.01 Morbid (severe) obesity due to excess calories; G47.00 Insomnia, unspecified; Z79.899 Other long term (current) drug therapy; Z98.890 Other specified postprocedural states; Z88.8 Allergy status to other drugs, medicaments and biological substances

== ENCOUNTER → 2020-11-16 | Outpatient (CLI) | payer MEDICAID ==
[~2020-11-16] MED LIST changes: +HYDROCODON-ACE1 EAC5 PO
== END | disposition home or self-care (01) ==
LOC: M.PC 11:00
PROVIDERS: ATTEND Anesthesiology Pain Medicine
DX: M70.62 Trochanteric bursitis, left hip (principal); M25.552 Pain in left hip; M54.5 Low back pain; G89.29 Other chronic pain; I10 Essential (primary) hypertension; E11.9 Type 2 diabetes mellitus without complications; E78.5 Hyperlipidemia, unspecified; M06.9 Rheumatoid arthritis, unspecified; R53.82 Chronic fatigue, unspecified; E66.01 Morbid (severe) obesity due to excess calories; Z98.890 Other specified postprocedural states; Z79.899 Other long term (current) drug therapy; Z68.43 Body mass index [BMI] 50.0-59.9, adult; Z90.49 Acquired absence of other specified parts of digestive tract; Z88.8 Allergy status to other drugs, medicaments and biological substances